=== PATIENT | female | born 2000 | race Caucasian/White ===

== ENCOUNTER 2021-05-31 18:17 | Emergency (ER) | payer OTHER, MEDICAID ==
[2021-05-31] MEDS ORDERED: Acetaminophen 500 MG TAB ONE (18:40)
[2021-05-31 18:52] LABS: Bilirubin Negative (Negative); Blood, Urine Negative (Negative); Clarity Clear (Clear); Glucose, Urine (Dipstick) Negative (Negative); Ketone, Urine 40 mg/dL (Negative); Leukocyte Negative (Negative); Nitrite Negative (Negative); Protein, Urine (Dipstick) Negative (Neg-Trace)
[2021-05-31 18:55] LABS: Specific Gravity, Urine 1.026 (1.002-1.036)
== END 2021-05-31 19:13 | disposition home or self-care (01) ==
LOC: BURERS 18:17
DX: O9A.211 Injury, poisoning and certain other consequences of external causes complicating pregnancy, first trimester (principal); S39.012A Strain of muscle, fascia and tendon of lower back, initial encounter; O99.891 Other specified diseases and conditions complicating pregnancy; E86.0 Dehydration; X58.XXXA Exposure to other specified factors, initial encounter; Z3A.10 10 weeks gestation of pregnancy
CPT/HCPCS: 81003; 87086; 99283

== ENCOUNTER 2025-03-20 20:29 | Emergency (ER) | payer OTHER, SELFPAY | END 2025-03-20 20:54 | disposition home or self-care (01) | LOC: BURERS 20:29 | DX: F41.9 Anxiety disorder, unspecified (principal) | CPT/HCPCS: 99283 ==